=== PATIENT | female | born 1995 | race Two or more races ===

== ENCOUNTER 2023-06-26 22:43 | Emergency (ER) | payer MEDICAID, OTHER ==
[~2023-06-26] VITALS: Ht 165.1 cm; Wt 63.9 kg
[2023-06-27] MEDS ORDERED: MUPI2OIN2 EX (01:04)
[2023-06-27] MEDS ORDERED: CEPH500C PO (01:04)
[2023-06-27 03:07] VITALS: BP 101/72; PULSE 81; RESP 22; TEMP 98; O2SAT 97
== END 2023-06-27 00:40 | disposition home or self-care (01) ==
LOC: ER 22:43
DX: L03.011 Cellulitis of right finger (principal)